=== PATIENT | female | born 1955 | race American Indian/Alaskan Native ===

== ENCOUNTER 2022-04-01 08:32 | Outpatient (CLI) | payer OTHER ==
[2022-04-01 09:33] LABS: Blood Urea Nitrogen 5 mg/dL (7-17)
--- NOTE | 2022-04-01 11:23 | Cat Scan Report ---
CT ABDOMEN AND PELVIS WITH CONTRAST HISTORY: Z01.89 ENCOUNTER FOR OTHER SPECIFIED SPECIAL EXAMINATIONS. Hematuria COMPARISON: None. TECHNIQUE: CT images of the abdomen and pelvis were obtained following administration of intravenous contrast. All CT scans at this location are performed using CT dose reduction for ALARA by means of automated exposure control. CONTRAST: 100 ml of intravenous contrast administered. FINDINGS: Lungs/bones: There is minimal bibasilar atelectasis with otherwise clear lungs. Degenerative changes are present in the spine and pelvis with no acute osseous abnormality. Abdomen/pelvis: On the noncontrast portion of the exam, there is no radiopaque urinary stone disease . After the administration of contrast, there is no renal mass or cyst. The delayed phase series show s no collecting system filling defect. The urinary bladder is unremarkable. There is a fluid attenuation cystic/tubular structure in the right retroperitoneum adjacent to the ki dney measuring 3.9 x 2.0 cm on image 76 of series 5 which is simple in appearance. Borderline hepatic steatosis is present. The liver is otherwise unremarkable. The gallbladder, spleen , pancreas, adrenals, and proximal GI tract appear unremarkable. Uterus is surgically absent. No pelvic free fluid. No acute colonic abnormality identified. IMPRESSION: 1. No acute abnormality identified. 2. Incidental cystic/tubular structure in the right retroperitoneum. Differential considerations incl ude a lymphocele or other benign cystic structure. Signer Name: Matt Navarro MD Signed: 04/01/2022 11:19 AM Workstation Name: [id number]
== END 2022-04-01 08:33 | disposition home or self-care (01) ==
LOC: CT 08:32
PROVIDERS: ATTEND Internal Medicine
DX: Z01.89 Encounter for other specified special examinations (principal); R31.9 Hematuria, unspecified; M47.819 Spondylosis without myelopathy or radiculopathy, site unspecified
CPT/HCPCS: 36415; 74178; 82565; 84520; Q9967